=== PATIENT | male | born 1965 | race Caucasian/White ===

== ENCOUNTER 2022-07-09 11:07 | Observation (INO) ==
--- NOTE | 2022-07-09 11:19 | Emergency Department Note ---
HPI General Chief complaint: Extremity Problem,Nontraumatic Stated complaint: cellulitis L leg Time Seen by Provider: 07/09/22 11:18 Source: patient Mode of arrival: ambulatory Limitations: no limitations History of Present Illness HPI Narrative: Narrative: Patient is a 57-year-old male with a history of cellulitis who presents to the emergency department due to concern for continued cellulitis. He states that h is left leg has been red and swollen for a couple of weeks. He states that he initially went to [facility] where he was given an antibiotic. He states that he returned there after a couple of days because of continued swelling, and they started him on Lasix. He states that the commendation of these seem to decrease the amount of redness, but he continued to have swelling and some redness, so we nt back to [facility] care. Patient was then sent to the emergency department due to concern for failure of outpatient therapy for cellulitis. He does endorse pain of the leg, and does specifically endorse pain to the back of the leg. He endorses some lightheadedness and headache. He denies any other symptoms at this time. Related Data Home Medications Medication Instructions Recorded Confirmed multivitamin 1 tab PO QDAY 02/13/19 07/09/22 Previous Rx's Medication Instructions Recorded Knee high compression stockings #1 ea 07/05/22 15-20 mmhg amoxicillin 875 mg-potassium 1 tab PO BID 12 days #24 tabs 07/11/22 clavulanate 125 mg tablet doxycycline hyclate 100 mg capsule 100 mg PO QDAY 12 days #12 caps 07/11/22 Allergies Allergy/AdvReac Type Severity Reaction Status Date / Time No Known Drug Allergies Allergy Verified 07/09/22 11:14 Review of Systems ROS ROS Narrative: Narrative: Constitutional: Reports chills; Denies fever or weakness Eyes: Denies eye pain or vision change ENT ED: Denies throat pain or rhinorrhea Cardiovascular: Denies chest pain, dyspnea on exertion, orthopnea or edema Respiratory: Denies shortness of breath or cough Gastrointestinal: Denies abdominal pain, nausea, vomiting, diarrhea, constipation, hematochezia or melena Genitourinary: Denies dysuria or frequency Musculoskeletal: Reports other (Leg pain); Denies back pain or myalgia Integumentary: Reports change in color and pruritus; Denies rash or lesions Neurological: Denies headache, weakness, numbness, confusion, abnormal gait or dizziness Endocrine: Denies fatigue or polyuria [facility] Narrative Patient History Narrative: Narrative: Medical/Surgical/Family History All Active Problems (Updated 07/12/22 @ 18:15 by Zack Coronado MD) Cellulitis (Acute) High risk medication use (Acute) Lower extremity edema (Acute) Cellulitis of left leg (Acute) COVID-19 (Acute) Anterior dislocation of right shoulder (Acute) Bronchitis (Acute) Acute internal derangement of knee (Acute) Edema of left foot (Acute) Upper respiratory infection (Acute) Adverse reaction to influenza surface antigen vaccine (Acute) Abscess (Acute) Right knee sprain (Acute) Medical History Asthma remote Bronchitis Right knee sprain Surgical History Biceps tendon tear left Loose body in right ankle 2007 removed Social History Smoking Status: Current every day smoker Alcohol Intake Frequency: a few times a week Substance Use: does not use Exam Narrative Narrative: Narrative: General Limitations: no limitations General appearance: Present alert and in no apparent distress; Absent anxious, appears intoxicated or sleepy Head Head: Present atraumatic and normocephalic Eye Eye: Present EOMI; Absent scleral icterus or nystagmus ENT ENT: Present mucous membranes moist; Absent nasal congestion Neck Neck: Present full ROM; Absent tenderness Chest Chest: Present normal inspection and symmetric chest wall rise Respiratory Respiratory: Present normal lung sounds bilaterally; Absent respiratory distress or accessory muscle use Cardiovascular Cardiovascular: Present regular rate, normal rhythm and normal heart sounds Adbominal Abdominal: Present soft; Absent distention Extremities Extremities: Present normal inspection, full ROM, tenderness, pedal edema and pretibial edema; Absent calf tenderness Back Back: Present normal inspection and full ROM Neurological Neurological: Present alert and oriented X3 Psychiatric Psychiatric: Present normal affect and normal mood Skin Skin: Present warm (WNL), dry, normal color and erythema Course Vital Signs Vital signs: Vital Signs Temperature 97.5 F 07/09/22 11:10 Pulse Rate 80 07/09/22 11:10 Respiratory Rate 18 07/09/22 11:10 Blood Pressure 146/92 07/09/22 11:10 Pulse Oximetry (%) 98 07/09/22 11:10 Oxygen Delivery Method 07/09/22 11:10 Temperature 97.5 F 07/11/22 15:38 Pulse Rate 78 07/11/22 15:38 Respiratory Rate 16 07/11/22 15:38 Blood Pressure 144/89 07/11/22 15:38 Pulse Oximetry (%) 98 07/11/22 15:38 Oxygen Delivery Method 07/11/22 15:38 MDM MDM Narrative Medical decision making narrative: Narrative: Patient is a 57-year-old male with a history of cellulitis who presents to the emergency department due to concern for continued cellulitis. Patient has findings consistent with continued cellulitis. There is concern for cellulitis with failure of outpatient therapy given continued symptoms and exam findings. Patient has received IV vancomycin. I have spoken to Dr. Snyder who has agreed to see and evaluate patient for admission. Lab Data Result diagrams: 07/10/22 05:23 07/10/22 05:23 Labs: Lab Results 07/09/22 07/09/22 07/09/22 Range/Units 12:05 12:05 12:14 WBC 6.5 (4.5-11.0) K/mcL RBC 4.99 (4.63-6.08) M/mcL Hgb 14.6 (13.7-17.5) g/dL Hct 46.2 (40.1-51.0) % POC Hct 46.0 (41-55) MCV 92.6 (80.0-100.0) fL MCH 29.3 (26.0-34.0) pg MCHC 31.6 (31.0-36.0) g/dL RDW 14.3 (11.5-14.5) % Plt Count 304 (140-440) K/mcL MPV 10.0 (8.8-12.5) fL Immature Gran % (Auto) 7.6 H (0.0-0.5) % Neut % (Auto) 59.5 (38.0-78.0) % Lymph % (Auto) 22.1 (15.5-49.0) % Tift % (Auto) 6.2 (1.0-12.0) % Eos % (Auto) 3.7 (0.0-7.0) % Baso % (Auto) 0.9 (0.0-2.0) % Lymph # (Auto) 1.43 L (1.50-4.80) K/mcL Tift # (Auto) 0.40 (0.10-0.90) K/mcL Eos # (Auto) 0.24 (0.00-0.70) K/mcL Baso # (Auto) 0.06 (0.00-0.30) K/mcL Immature Gran # 0.49 H (0.00-0.05) K/mcl Absolute Neutrophils 3.85 (1.80-8.00) K/mcL POC Sodium 138 (133-145) POC Potassium 4.9 (3.3-5.1) POC Chloride 100 (96-108) POC Total CO2 30.0 (22-30) POC BUN 13 (6-20) POC Creatinine 0.8 (0.6-1.2) POC Glucose 109 H (70-105) POC WB Ioniz Calcium 1.16 (1.16-1.32) Procalcitonin 0.11 H (<0.10) ng/mL Discharge Plan Patient/Caregiver Discharge Instructions Pt seen by [facility]/PA only: No Clinical Impression: Cellulitis Activity: resume usual activities as tolerated Patient Disposition: Xfer As Inpt ([facility]) Condition: Fair Discharge Date/Time: 07/09/22 14:15
[2022-07-09] MEDS ORDERED: VANCOMYCIN 2,000 MG in 0.9 % SODIUM CHLORIDE 500 ML IV ONE (11:31)
[2022-07-09] MEDS ORDERED: VANCOMYCIN 2,000 MG in 0.9 % SODIUM CHLORIDE 500 ML IV SCH (12:00)
[2022-07-09 12:20] LABS: POC Calcium, Ionized 1.16 (1.16-1.32); POC Creatinine 0.8 (0.6-1.2); POC Potassium 4.9 (3.3-5.1)
--- NOTE | 2022-07-09 12:48 | Ultrasound Report ---
History: Left leg pain and swelling FINDINGS: There is normal augmentation and compressibility in the deep veins and saphenous vein from the left groin through the calf. Doppler shows normal waveform patterns. There are couple benign-appearing lymph nodes with fatty bert in the left inguinal region. IMPRESSION: Normal exam, without evidence of deep venous thrombosis Interpreted and Authenticated by: Carroll Christianson 07/09/22
[2022-07-09 13:17] LABS: Basophils # (Auto) 0.06 K/mcL (0.00-0.30); Basophils % (Auto) 0.9 % (0.0-2.0); Eosinophils # (Auto) 0.24 K/mcL (0.00-0.70); Eosinophils % (Auto) 3.7 % (0.0-7.0); Hematocrit 46.2 % (40.1-51.0); Hemoglobin 14.6 g/dL (13.7-17.5); Lymphocytes # (Auto) 1.43 K/mcL (1.50-4.80); Lymphocytes % (Auto) 22.1 % (15.5-49.0); Mean Cell Volume 92.6 fL (80.0-100.0); Mean Corpuscular HGB Conc 31.6 g/dL (31.0-36.0); Monocytes % (Auto) 6.2 % (1.0-12.0); Neutrophils % (Auto) 59.5 % (38.0-78.0); Platelet Count 304 K/mcL (140-440); RBC 4.99 M/mcL (4.63-6.08); Red Cell Distribution Width 14.3 % (11.5-14.5); WBC 6.5 K/mcL (4.5-11.0)
--- NOTE | 2022-07-09 14:29 | Internal Med History&Physical ---
HPI History of Present Illness Patient information: Note initiated : 07/09/22 at 2:26 pm Service Date, if different from initiated Date: [] Patient: Tor Kendrick 57 y/o M admitted on for cellulitis L leg. Chief Complaint: [LLE swelling, erythema] Chief complaint: LLL non-purulent cellulitis History of present illness: Mr. Kendrick is a 57 year old M with no significant past medical history presents to the hospital with worsening left lower extremity swelling, pain and erythema. The patient has failed outpatient antibiotic therapy with Keflex. The patient states that he was unable to fit into his tennis shoes today due to the swelling. The patient denies any fevers or chills at home. He does have some skin breakdown which may have been the nidus for the infection. On arrival he was hemodynamically stable and afebrile. The patient had ultrasound venous Doppler which was negative for DVT. The hospital service was asked admit the patient for further management and evaluation of his left lower extremity nonpurulent cellulitis. Review of Systems All systems: reviewed and no additional remarkable complaints except as stated Constitutional Constitutional: Present as per HPI EENT Eyes: Present as per HPI; Absent blurry vision Cardiovascular Cardiovascular: Present as per HPI; Absent chest pain, dyspnea, dyspnea on exertion, leg edema or palpatations Respiratory Respiratory: Present as per HPI; Absent cough, dyspnea, dyspnea on exertion, wheezing or stridor Gastrointestinal Gastrointestinal: Present as per HPI; Absent abdominal pain, diarrhea, dysphagia, hematemesis, melena, nausea or vomiting Musculoskeletal Musculoskeletal: Present as per HPI; Absent joint swelling, limited range of motion, muscle cramps, muscle weakness or myalgias Integumentary Integumentary: Present as per HPI; Absent erythema, new lesions, rash or wounds Neurological Neurological: Present as per HPI; Absent abnormal gait, behavioral changes, focal weakness, headache(s), loss of vision, numbness, sensory deficit or syncope Endocrine Endocrine: Absent change in body appearance, fatigue or heat intolerance Hematologic/Lymphatic Hematologic/Lymphatic: Present as per HPI PFSH PFSH All Active Problems High risk medication use (Acute) Lower extremity edema (Acute) Cellulitis of left leg (Acute) COVID-19 (Acute) Anterior dislocation of right shoulder (Acute) Bronchitis (Acute) Acute internal derangement of knee (Acute) Edema of left foot (Acute) Upper respiratory infection (Acute) Adverse reaction to influenza surface antigen vaccine (Acute) Abscess (Acute) Right knee sprain (Acute) Medical History Asthma remote Bronchitis Right knee sprain Surgical History Biceps tendon tear left Loose body in right ankle 2007 removed Social History household members: significant other lives independently: Yes marital status: occupational status: employed smoking status: Current every day smoker alcohol intake frequency: a few times a week substance use type: does not use MEDS/ALLERGIES Home Medications and Allergies Home Medications Medication Instructions Recorded Confirmed Type multivitamin 1 tab PO QDAY 02/13/19 07/09/22 History cephalexin 500 mg capsule 500 mg PO QID 7 days #28 caps 07/04/22 07/09/22 Rx ondansetron 4 mg disintegrating 4 mg PO TID-QID PRN nausea and 07/04/22 07/09/22 Rx tablet vomiting #30 tabs Knee high compression stockings #1 ea 07/05/22 07/09/22 Rx 15-20 mmhg furosemide 20 mg tablet 20 mg PO QAM #10 tabs 07/07/22 07/09/22 Rx Allergies Allergy/AdvReac Type Severity Reaction Status Date / Time No Known Drug Allergies Allergy Verified 07/09/22 11:14 EXAM Constitutional Vitals: Temp Pulse Resp BP Pulse Ox O2 Del Method 97.5 F 69 18 146/92 97 07/09/22 11:10 07/09/22 12:09 07/09/22 11:10 07/09/22 11:10 07/09/22 12:09 07/09/22 11:10 General appearance: average body habitus Head Head exam: Present atraumatic, normal inspection and normocephalic Eye Eye exam: Present EOMI, normal appearance and PERRL; Absent conjunctival injection ENT ENT exam: Present normal exam; Absent mucous membranes dry Neck Neck exam: Present full ROM; Absent lymphadenopathy Respiratory Respiratory exam: Present normal respiratory exam and CTAB; Absent decreased breath sounds, respiratory distress or wheezes Cardiovascular Cardiovascular exam: Present normal rate and rhythm and RRR; Absent JVD GI/Abdominal GI/Abdominal exam: Present normal bowel sounds and soft; Absent diminished bowel sounds, distended, guarding, mass, rebound or tenderness Neurological Exam Neurological exam: Present alert, CN II-XII intact and oriented X3 Psychiatric Psychiatric exam: Present normal affect and normal mood Skin Skin exam: Present intact and warm; Absent erythema, pallor, petechiae or rash DATA Data Completed and Pending Labs: Labs from last 24 hours 07/09/22 07/09/22 07/09/22 12:14 12:05 12:05 WBC 6.5 RBC 4.99 Hgb 14.6 Hct 46.2 POC Hct 46.0 MCV 92.6 MCH 29.3 MCHC 31.6 RDW 14.3 Plt Count 304 MPV 10.0 Immature Gran % (Auto) 7.6 H Neut % (Auto) 59.5 Lymph % (Auto) 22.1 Nye % (Auto) 6.2 Eos % (Auto) 3.7 Baso % (Auto) 0.9 Lymph # (Auto) 1.43 L Nye # (Auto) 0.40 Eos # (Auto) 0.24 Baso # (Auto) 0.06 Immature Gran # 0.49 H Absolute Neutrophils 3.85 POC Sodium 138 POC Potassium 4.9 POC Chloride 100 POC Total CO2 30.0 POC BUN 13 POC Creatinine 0.8 POC Glucose 109 H POC WB Ioniz Calcium 1.16 Procalcitonin 0.11 H A/P Assessment and plan (1) Cellulitis of left leg: Status: Acute Narrative A/P Narrative: At this point, the patient is hemodynamically stable, afebrile with a normal white blood cell count. DVT study was negative. Because the patient has failed outpatient oral antibiotic therapy for 1 week, will admit him and start vancomycin and cefepime. We will demarcate his extremity and follow the site of erythema. It is also recommended he keep his leg elevated is much as possible. Medication reconciliation is pending Time Spent With Patient Time: Total time spent is greater than 50% in coordination of care (as documented) at patient's floor/unit and/or counseling patient: Initial: Total time with patient: 55 - 74 minutes
[2022-07-09] MEDS ORDERED: ONDANSETRON 4 MG/2 ML VIAL IV PRN (14:41)
[2022-07-09] MEDS ORDERED: IBUPROFEN 600 MG TABLET PO SCH (14:41)
[2022-07-09] MEDS ORDERED: ACETAMINOPHEN 325 MG TABLET PO PRN (14:41)
[2022-07-09] MEDS: 0.9 % SODIUM CHLORIDE 10 ML SYRINGE IV SCH ×2 (14:57→22:55)
[2022-07-09] MEDS: CEFEPIME 2 GM VIAL IV SCH ×2 (15:56→22:55)
[2022-07-09] MEDS: SENNOSIDES 1 TABLET PO SCH (22:56)
[2022-07-09] MEDS: DOCUSATE SODIUM 100 MG CAPSULE PO SCH (22:56)
[2022-07-10] MEDS: VANCOMYCIN 1,750 MG in 0.9 % SODIUM CHLORIDE 500 ML IV SCH ×2 (00:45→12:52)
[2022-07-10] MEDS: CEFEPIME 2 GM VIAL IV SCH ×3 (05:10→23:06)
[2022-07-10] MEDS: 0.9 % SODIUM CHLORIDE 10 ML SYRINGE IV SCH ×3 (05:10→23:05)
[2022-07-10 06:53] LABS: Basophils # (Auto) 0.08 K/mcL (0.00-0.30); Basophils % (Auto) 1.7 % (0.0-2.0); Eosinophils # (Auto) 0.23 K/mcL (0.00-0.70); Hematocrit 43.6 % (40.1-51.0); Hemoglobin 13.6 g/dL (13.7-17.5); Lymphocytes # (Auto) 1.09 K/mcL (1.50-4.80); Lymphocytes % (Auto) 23.7 % (15.5-49.0); Mean Corpuscular HGB Conc 31.2 g/dL (31.0-36.0); Mean Platelet Volume 9.8 fL (8.8-12.5); Monocytes # (Auto) 0.27 K/mcL (0.10-0.90); Monocytes % (Auto) 5.9 % (1.0-12.0); Neutrophils % (Auto) 55.2 % (38.0-78.0); Platelet Count 303 K/mcL (140-440); RBC 4.59 M/mcL (4.63-6.08); Red Cell Distribution Width 14.4 % (11.5-14.5); WBC 4.6 K/mcL (4.5-11.0)
[2022-07-10 07:09] LABS: Blood Urea Nitrogen 15 mg/dL (6-20); Calcium 9.1 mg/dL (8.6-10.4); Carbon Dioxide 25 mmol/L (22-30); Chloride 101 mmol/L (96-108); Glomerular Filtration Rate 96; Glucose 104 mg/dL (70-105)
[2022-07-10] MEDS ORDERED: VANCOMYCIN PER PHARMACY IV SCH (09:00)
--- NOTE | 2022-07-10 09:11 | Internal Med Progress Note ---
SUBJECTIVE Subjective Patient information: Note initiated : 07/10/22 at 9:09 am Service Date, if different from initiated Date: [] Patient: Tor Kendrick 57 y/o M admitted on 07/09/22 for cellulitis L leg. Chief Complaint: [Left lower extremity erythema and swelling] Principal diagnosis: Left lower extremity nonpurulent cellulitis Interval history: The patient was in good spirits this morning. He had no active complaints or concerns. Discussed plan of care and he was in agreement. Answered all of his questions to his satisfaction. Constitutional Vitals: Vital Signs Temp Pulse Resp BP Pulse Ox O2 Del Method 97.2 F 70 20 129/89 96 07/10/22 08:00 07/10/22 08:00 07/10/22 08:00 07/10/22 08:00 07/10/22 08:00 07/10/22 08:00 Period Temp Pulse Resp BP Sys/Palmer Pulse Ox O2 Del Method O2 Flow Rate Last 24 Hr 97.2 F-99.6 F 66-80 16-28 107-146/64-92 94-99 Room Air-Room Air Intake and Output 07/09/22 07/10/22 07/10/22 19:59 03:59 11:59 Intake Total 1620 800 Output Total 500 1175 825 Balance 1120 -375 -825 Weight 135.669 kg Intake & Output: Intake & Output 07/09/22 07/10/22 07/10/22 19:59 03:59 11:59 Intake Total 1620 800 Output Total 500 1175 825 Balance 1120 -375 -825 Weight 135.669 kg Intake: IV 500 500 Vancomycin 1,750 mg In Sodium 500 500 Chloride 0.9% 500 ml @ 250 mls/ hr IV Q12H [facility] Rx#:[id number] Oral 880 300 GI Tube Flush 240 Output: Void Amount 500 1175 825 Other: Meal Dinner Egg salad/crackers Percent of Meal Consumed 100% 100% Feeding Ability Independent Independent Urine Appearance Clear Clear Clear Urine Color Yellow Yellow Yellow Urine Odor Normal Head Head exam: Present atraumatic and normal inspection Eye Eye exam: Present normal appearance ENT ENT exam: Present mucous membranes moist, normal exam and normal external ear exam Neck Neck exam: Present normal inspection Respiratory Respiratory exam: Present normal respiratory exam Cardiovascular Cardiovascular exam: Present normal rate and rhythm GI/Abdominal GI/Abdominal exam: Present normal bowel sounds Back Exam Back exam: Present normal inspection Neurological Exam Neurological exam: Present alert and oriented X3 Skin Skin exam: Present intact and warm OBJ DATA Labs CBC & Chem 7: 07/10/22 05:23 07/10/22 05:23 Labs: Abnormal Lab Results 07/10/22 07/10/22 07/09/22 05:23 05:23 12:14 RBC 4.59 L Hgb 13.6 L Immature Gran % (Auto) 8.5 H Lymph # (Auto) 1.09 L Immature Gran # 0.39 H POC Glucose 109 H C-Reactive Protein 2.90 H Procalcitonin 07/09/22 07/09/22 12:05 12:05 RBC Hgb Immature Gran % (Auto) 7.6 H Lymph # (Auto) 1.43 L Immature Gran # 0.49 H POC Glucose C-Reactive Protein Procalcitonin 0.11 H Meds: Medications Acetaminophen (Acetaminophen 325 Mg Tablet) 650 mg PO Q6HP PRN; Protocol PRN Reason: Per Pain Protocol/Fever > 101 Cefepime HCl (Cefepime 2 Gm Vial) 2 gm IV Q8H [facility]; Protocol Last Admin: 07/10/22 05:10 Dose: 2 gm Docusate Sodium (Docusate Sodium 100 Mg Capsule) 100 mg PO BID [facility] Last Admin: 07/09/22 22:56 Dose: Not Given Enoxaparin Sodium (Enoxaparin 40 Mg/0.4 Ml Syringe) 40 mg SQ DAILY [facility] Vancomycin HCl 1,750 mg/ (Sodium Chloride) 500 mls @ 250 mls/hr IV Q12H [facility] Last Infusion: 07/10/22 02:45 Dose: Infused Ibuprofen (Ibuprofen 600 Mg Tablet) 600 mg PO QIDP [facility]; Protocol Last Admin: 07/10/22 00:43 Dose: 600 mg Ondansetron HCl (Ondansetron 4 Mg/2 Ml Vial) 4 mg IV Q6HP PRN PRN Reason: Nausea And Vomiting Senna (Sennosides 1 Tablet) 2 tab PO HS [facility] Last Admin: 07/09/22 22:56 Dose: Not Given Sodium Chloride (0.9 % Sodium Chloride 10 Ml Syringe) 10 ml IV Q8 [facility] Last Admin: 07/10/22 05:10 Dose: 10 ml Vancomycin HCl (Vancomycin Per Pharmacy) 1 order IV UD [facility]; Protocol A/P Assessment and plan (1) Cellulitis of left leg: Status: Acute Narrative A/P Narrative: At this point, the patient is hemodynamically stable, afebrile with a normal white blood cell count. DVT study was negative. Because the patient has failed outpatient oral antibiotic therapy for 1 week, will admit him and start vancomycin and cefepime. We will demarcate his extremity and follow the site of erythema. It is also recommended he keep his leg elevated is much as possible. Medication reconciliation is pending 07/10: The patient had his leg demarcated. The erythema is within the lines and is receding. There is improvement. We will continue cefepime and vancomycin. Blood cultures are pending. Time Spent With Patient Time: Total time spent is greater than 50% in coordination of care (as documented) at patient's floor/unit and/or counseling patient: Subsequent: Total time with patient: 25 - 34 minutes QUALITY VTE Deep Vein Thrombosis/Pulmonary Embolism Present on Admission: No
[2022-07-10] MEDS: ENOXAPARIN 40 MG/0.4 ML SYRINGE SQ SCH (09:16)
[2022-07-10] MEDS: DOCUSATE SODIUM 100 MG CAPSULE PO SCH ×2 (10:05→21:00)
[2022-07-10] MEDS: SENNOSIDES 1 TABLET PO SCH (21:00)
[2022-07-11] MEDS: VANCOMYCIN 1,750 MG in 0.9 % SODIUM CHLORIDE 500 ML IV SCH ×2 (01:18→12:34)
[2022-07-11] MEDS: 0.9 % SODIUM CHLORIDE 10 ML SYRINGE IV SCH ×2 (05:42→15:06)
[2022-07-11] MEDS: CEFEPIME 2 GM VIAL IV SCH ×2 (05:43→14:32)
[2022-07-11] MEDS: DOCUSATE SODIUM 100 MG CAPSULE PO SCH ×2 (08:05→08:07)
[2022-07-11] MEDS: ENOXAPARIN 40 MG/0.4 ML SYRINGE SQ SCH ×2 (08:05→08:08)
--- NOTE | 2022-07-11 10:55 | Discharge Summary ---
Discharge Provider Provider IMPORTANT FOLLOW-UP INFORMATION FOR PCP:1 1. Complete total of 2 weeks of antibiotics Patient information: Note initiated : 07/11/22 at 10:52 am Service Date, if different from initiated Date: [] Patient: Tor Kendrick 57 y/o M admitted on 07/09/22 for cellulitis L leg. Chief Complaint: [LLE swelling, erythema, pain] Date of admission: 07/09/22 14:20 Discharge date: 07/11/22 Primary care physician: Fabian Briscoe MD Consults: 07/09/22 Consult to Physician [CONS] Stat Comment: Consulting Provider: Ana Snyder Reason For Exam: Physician to Consult Attending physician on discharge: Ana Snyder COURSE Hospital Course Hospital course: Assessment and plan (1) Cellulitis of left leg: Status:Acute Narrative A/P Narrative: At this point, the patient is hemodynamically stable, afebrile with a normal white blood cell count. DVT study was negative. Because the patient has failed outpatient oral antibiotic therapy for 1 week, will admit him and start vancomycin and cefepime. We will demarcate his extremity and follow the site of erythema. It is also recommended he keep his leg elevated is much as possible. Medication reconciliation is pending 07/10: The patient had his leg demarcated. The erythema is within the lines and is receding. There is improvement. We will continue cefepime and vancomycin. Blood cultures are pending. 07/11: After 48 hours of parenteral antibiotics with vancomycin and cefepime, the patient's leg looks much better clinically. The erythema and swelling has reduced. He will be switched to Augmentin and doxycycline and will complete a total of 2 weeks. He is to follow-up with his primary care physician in outpatient setting. Discharge diagnosis: LLE cellulitis Time Spent with Patient Time attestation: Total time spent providing and/or coordinating discharge services: Time spent: Greater than 30 minutes EXAM Constitutional Vitals: Temp Pulse Resp BP Pulse Ox O2 Del Method 98.0 F 67 20 145/92 97 07/11/22 07:54 07/11/22 07:54 07/11/22 07:54 07/11/22 07:54 07/11/22 07:54 07/11/22 07:54 General appearance: average body habitus Head Head exam: Present atraumatic, normal inspection and normocephalic Eye Eye exam: Present EOMI, normal appearance and PERRL; Absent conjunctival injection ENT ENT exam: Present normal exam; Absent mucous membranes dry Neck Neck exam: Present full ROM; Absent lymphadenopathy Respiratory Respiratory exam: Present normal respiratory exam and CTAB; Absent decreased breath sounds, respiratory distress or wheezes Cardiovascular Cardiovascular exam: Present normal rate and rhythm and RRR; Absent JVD GI/Abdominal GI/Abdominal exam: Present normal bowel sounds and soft; Absent diminished bowel sounds, distended, guarding, mass, rebound or tenderness Neurological Exam Neurological exam: Present alert, CN II-XII intact and oriented X3 Psychiatric Psychiatric exam: Present normal affect and normal mood Skin Skin exam: Present intact and warm; Absent erythema, pallor, petechiae or rash Discharge Data Data Completed and Pending Labs on day of discharge: Preliminary micro results at discharge 07/09/22 12:25 Blood Culture - Preliminary Blood 07/09/22 12:10 Blood Culture - Preliminary Blood Discharge Plan Patient/Caregiver Discharge Instructions Activity: resume usual activities as tolerated Instructions: Cellulitis (DC) Prescriptions: New amoxicillin-pot clavulanate 875-125 mg tablet 1 tab PO BID 12 Days Qty: 24 0RF doxycycline hyclate 100 mg capsule 100 mg PO QDAY 12 Days Qty: 12 0RF Continued multivitamin tablet 1 tab PO QDAY Discontinued cephalexin 500 mg capsule 500 mg PO QID 7 Days Qty: 28 0RF ondansetron 4 mg tablet,disintegrating 4 mg PO TID-QID PRN (Reason: nausea and vomiting) Qty: 30 0RF furosemide 20 mg tablet 20 mg PO QAM Qty: 10 0RF No Action (DME) Knee high compression stockings 15-20 mmhg See Rx Instructions .Route .MEDSUPPLY Qty: 1 0RF Rx Instructions: As directed Follow Up Plan Follow up with: Fabian Briscoe MD [Primary Care Provider] - Patient Disposition: Home, Self-Care Prognosis: Fair I certify that the patient requires SNF services: No Overall status at discharge: patient is progressing back to baseline Discharge Orders: Discharge Order (Routine); Ordered 07/11/22 Ordered By: Ana Snyder ImpulseFlyer VTE Deep Vein Thrombosis/Pulmonary Embolism Present on Admission: No
== END 2022-07-11 15:22 | disposition home or self-care (01) ==
LOC: MEDSUR 11:07 → ED 11:07 → MEDSUR 14:15
PROVIDERS: ADMIT Student in an Organized Health Care Education/Training Program; ATTEND Student in an Organized Health Care Education/Training Program